=== PATIENT | male | born 2000 | race Two or more races ===

== ENCOUNTER 2023-01-01 19:10 | Emergency (ER) | payer MEDICAID, OTHER ==
[~2023-01-01] VITALS: Ht 165.1 cm; Wt 65.8 kg
[2023-01-01 19:26] VITALS: BP 128/71
--- NOTE | 2023-01-01 19:26 | NUR ---
TO BED AMBULATORY
--- NOTE | 2023-01-01 19:30 | NUR ---
Dr. Cunningham assessing patient.
[2023-01-01] MEDS ORDERED: KETOROLAC 30 MG/ML VIAL IM ONE (19:40)
--- NOTE | 2023-01-01 19:41 | NUR ---
Patient resting in bed, A/Ox4, chest rise and fall symmetrical, no s/s of distress.
[2023-01-01 19:48] LABS: APPEARANCE,URINE CLEAR (CLEAR); BILIRUBIN,URINE NEGATIVE (NEGATIVE); BLOOD, URINE SMALL (NEGATIVE); COLOR,URINE YELLOW (YELLOW); LEUKOCYTE ESTERASE ,URINE NEGATIVE (NEGATIVE); NITRITE, URINE NEGATIVE (NEGATIVE); UGLUCOSE NEGATIVE (NEGATIVE)
--- NOTE | 2023-01-01 20:05 | NUR ---
Patient resting in bed, A/Ox4, chest rise and fall symmetrical, no c/o pain or s/s of distress.
[2023-01-01 20:07] LABS: TRICHOMONAS,URINE None Seen /HPF (None Seen); WBC,URINE 0-5 /HPF (0-5); YEAST,URINE None Seen /HPF (None Seen)
--- NOTE | 2023-01-01 21:00 | NUR ---
Patient resting in bed, A/Ox4, chest rise and fall symmetrical, no c/o pain or s/s of distress.
[2023-01-01] MEDS ORDERED: NAPR-54 PO (21:52)
--- NOTE | 2023-01-01 22:00 | NUR ---
Patient resting in bed, A/Ox4, chest rise and fall symmetrical, no c/o pain or s/s of distress.
[2023-01-01 22:04] VITALS: BP 122/75
== END 2023-01-01 22:05 | disposition home or self-care (01) ==
LOC: MED 19:10
DX: S30.22XA Contusion of scrotum and testes, initial encounter (principal); N50.812 Left testicular pain; Z79.899 Other long term (current) drug therapy; X58.XXXA Exposure to other specified factors, initial encounter; Y93.89 Activity, other specified; Y92.89 Other specified places as the place of occurrence of the external cause; Y99.8 Other external cause status
CPT/HCPCS: 76870; 81001; 96372; 99285; J1885; Q0092; 99284